=== PATIENT | male | born 1980 | race Hispanic/Latino ===

== ENCOUNTER → 2018-05-05 | Day surgery (SDC) | payer BC ==
[~2018-05-05] MED LIST: CEFTRIAXONE SOD 1 GM VIAL ONE; DESFLURANE 240 ML BTL INH ONE; DEXAMETHASONE SOD PHOS INJ 4 MG/ML VIAL ONE; DIFLUNISAL500 MG PO; FENTANYL CITRATE/PF 100MCG/2 ML INJ ONE; GLYCOPYRROLATE INJ 1MG/ 5 ML SYR ONE; IOPAMIDOL 300MG/ML 50ML INFUS..BTL IV ONE; LIDOCAINE HCL 2% LOCAL INJ 5 ML SDV VIAL INJ ONE; MIDAZOLAM HCL 2 MG/2 ML VIAL ONE; NEOSTIGMINE 5 MG/5ML SYR ONE; OMEPRAZOLE40 MG PO; ONDANSETRON HCL INJ 2 MG/ML VIAL ONE; ORPHENADRINE C100 MG PO; PROPOFOL IV EMULSION 10 MG/ML 20 ML VIAL ONE; ROCURONIUM BROMIDE 10 MG/ML 5ML VIAL ONE; SUCCINYLCHOLINE 200 MG/10 ML SYR ONE; Z.0.PENICILLIN V P50 PO
--- NOTE | 2018-05-05 13:56 | Diagnostic Imaging Report ---
PROCEDURE: X-RAY RETROGRADE PYELOGRAM COMPARISON: None. INDICATIONS: Not provided. FINDINGS: Multiple intraoperative spot images of the abdomen and pelvis were obtained. There is retrograde cannulization of the left ureter with contrast injection. There is mild hydronephrosis with calyceal blunting. Later images depict placement of a left nephroureteral stent with proximal pigtail in the renal pelvis and distal pigtail in the bladder. Cumulative fluoro time: 31 seconds Cumulative area dose product: 542.8 cGycm2 Cumulative air kerma: 15.14 mGy CONCLUSION: Retrograde pyelogram as described above. Dictated by: Som Welsh M.D. on 05/05/2018 at 14:02 Electronically approved by: Som Welsh M.D. on 05/05/2018 at 14:02
--- NOTE | 2018-05-06 09:55 | Operative Report ---
DATE OF PROCEDURE: May 05, 2018 PREOPERATIVE DIAGNOSIS: Left lower pole renal stone. POSTOPERATIVE DIAGNOSIS: Left lower pole renal stone. OPERATIVE PROCEDURES PERFORMED 1. Cystoscopy. 2. Left retrograde pyelogram. 3. Left ureteroscopy with laser lithotripsy and placement of left ureteral stents. ANESTHESIA: General anesthesia. ESTIMATED BLOOD LOSS: Minimal. INDICATIONS: Mr. Jamey Farris is a 37-year-old gentleman who was found to have an 8-mm stone in the left renal pelvis that has since dropped down into the left lower pole. He now presents for definitive surgical management of this problem. PROCEDURE IN DETAIL: The patient was brought into the operating room and placed in the supine position. After administration of general anesthesia, was placed in the dorsal lithotomy position and prepped and draped in the usual sterile fashion. Cystourethroscopy was performed using a 21-Cuban cystoscope. The anterior and posterior urethras were noted to be normal. The prostate revealed mild elevation of the median bar. The bladder was entered without difficulty. Upon entrance into the bladder, the ureteral orifices were in normal anatomical position and produced clear efflux. There were no mucosal lesions identified. Using a 5-Cuban open cone catheter, left retrograde pyelogram was performed. This revealed mild hydronephrosis of the left ureter without any filling defects seen. There was some blunting of the calices noted presumably due to injection artifact. There is a questionable filling defect seen in the lower pole maryann. A 0.035 Amplatz wire was placed up into the left renal pelvis, and a 12/14, 36 cm ureteral access sheath was placed. Flexible ureteroscopy was then performed. The visualized portion of the proximal ureter in the ureteropelvic junction were visually normal. All the calices were visualized. There was a stone approximately 7 mm in diameter noted in the lower pole on the left side. The Holmium laser was used to blast this into multiple fragments. The largest fragment was removed and sent to pathology for identification and analysis. The residual fragments seen were all 1-2 mm or smaller. There were no other stones seen in the collecting system on that side. The flexible ureteroscope and ureteral access sheath was removed. A 6-Cuban, 28-cm stent was placed such that 1 coil was in the renal pelvis and the subsequent coil was in the bladder. The string was allowed to exit the urethral meatus. The patient's bladder was drained in its entirety. The cystoscope and sheath was removed. He was returned to the supine position and anesthesia was reversed. He was transferred to a bed, and taken to the postanesthesia care unit in good condition. Of note, the needle and instrument count were correct at the conclusion of the case. Job#: [id number]
== END | disposition home or self-care (01) ==
LOC: OR 09:47
PROVIDERS: ATTEND Urology
DX: N20.0 Calculus of kidney (principal); G47.33 Obstructive sleep apnea (adult) (pediatric); K29.70 Gastritis, unspecified, without bleeding
CPT/HCPCS: 52356; 74420; 88300; C1766; C2617; J0696; J1100; J2001; J2250; J2405; J3490; Q9967

== ENCOUNTER 2018-05-12 06:46 | Emergency (ER) | payer BC ==
[~2018-05-12] VITALS: Ht 175.3 cm; Wt 137.4 kg
[~2018-05-12 06:46] MED LIST changes: -CEFTRIAXONE SOD 1 GM VIAL ONE; -DESFLURANE 240 ML BTL INH ONE; -DEXAMETHASONE SOD PHOS INJ 4 MG/ML VIAL ONE; -FENTANYL CITRATE/PF 100MCG/2 ML INJ ONE; -GLYCOPYRROLATE INJ 1MG/ 5 ML SYR ONE; -IOPAMIDOL 300MG/ML 50ML INFUS..BTL IV ONE; -LIDOCAINE HCL 2% LOCAL INJ 5 ML SDV VIAL INJ ONE; -MIDAZOLAM HCL 2 MG/2 ML VIAL ONE; -NEOSTIGMINE 5 MG/5ML SYR ONE; -ONDANSETRON HCL INJ 2 MG/ML VIAL ONE; -PROPOFOL IV EMULSION 10 MG/ML 20 ML VIAL ONE; -ROCURONIUM BROMIDE 10 MG/ML 5ML VIAL ONE; -SUCCINYLCHOLINE 200 MG/10 ML SYR ONE
--- NOTE | 2018-05-12 08:04 | Diagnostic Imaging Report ---
History: Vertigo Comparison studies: None Technique: Axial images were obtained from the skull base to the vertex. Coronal and sagittal reconstructions obtained from the axial data. Findings: Scalp/skull: Subcentimeter focal mucosal thickening at the right parietal scalp, most likely related to epidural inclusion cyst. No fractures, blastic or lytic lesions. Extra-axial spaces: No masses. No fluid collections. Brain sulci: Appropriate for age. Ventricles: Normal in size and configuration. No hydrocephalus. Parenchyma: No abnormal densities. No masses, hemorrhage, acute or chronic cortical vascular insults. Sellar/suprasellar region: No abnormalities Craniocervical junction: Patent foramen magnum. No Chiari one malformation. IMPRESSION: No abnormalities . Signed by: DR Jasen Rosas M.D. on 05/12/2018 8:01 AM
[2018-05-12 08:16] LABS: BASOPHILS % 0.3 % (0.0-1.0); EOSINOPHILS # (AUTO) 0.1 (0.0-0.4); EOSINOPHILS % 1.6 % (0.0-6.0); HEMATOCRIT 40.9 % (38.2-49.6); HEMOGLOBIN 13.8 g/dL (14.0-18.0); LYMPHOCYTES # (AUTO) 2.4 (1.0-3.2); LYMPHOCYTES % 27.9 % (18.0-39.1); MEAN CORPUSCULAR HEMOGLOBIN 29.9 pg (28-32); MEAN CORPUSCULAR HGB CONC 33.7 g/dL (31-35); MEAN CORPUSCULAR VOLUME 88.5 fL (81-99); MONOCYTES # (AUTO) 0.4 (0.2-0.8); MONOCYTES % 4.8 % (4.4-11.3); NEUTROPHILS # (AUTO) 5.6 (2.1-6.9); NEUTROPHILS % 64.4 % (38.7-80.0); PLATELET COUNT 243 x10e3/uL (140-360); RED BLOOD COUNT 4.62 x10e6/uL (4.3-5.7); RED CELL DISTRIBUTION WIDTH 13.2 % (11.7-14.4)
[2018-05-12 08:33] LABS: ALANINE AMINOTRANSFERASE 38 IU/L (0-55); ALBUMIN 3.3 g/dL (3.5-5.0); ALBUMIN/GLOBULIN RATIO 0.7 (0.8-2.0); ALKALINE PHOSPHATASE 96 IU/L (40-150); ANION GAP 10.8 mmol/L (8-16); BLOOD UREA NITROGEN 11 mg/dL (7-26); BUN/CREATININE RATIO 15 (6-25); CALCIUM 9.1 mg/dL (8.4-10.2); CARBON DIOXIDE 28 mmol/L (22-29); CHLORIDE 105 mmol/L (98-107); CHOL/HDL RATIO 3.5 (3.9-4.7); CHOLESTEROL 124 MD/DL (0-199); CREATININE, SERUM 0.75 mg/dL (0.72-1.25); EST GLOMERULAR FILTRATION RATE > 60 ML/MIN (60-); GLUCOSE 124 mg/dL (74-118); HDL CHOLESTEROL 35 MG/DL (40-60); LDL CHOLESTEROL 74 MG/DL (60-130); POTASSIUM 3.8 mmol/L (3.5-5.1); SODIUM 140 mmol/L (136-145); TRIGLYCERIDES 74 MG/DL (0-149)
--- NOTE | 2018-05-12 09:10 | Diagnostic Imaging Report ---
PROCEDURE:L-SPINE COMPLETE COMPARISON:Retrograde pyelogram 05/05/2018. INDICATIONS:LUMBAR RADICULOPATHY FINDINGS: There are 5 [id number] lumbar-type vertebral bodies. No acute, displaced fracture or subluxation. No pars interarticularis defects are identified on the oblique radiographs. Mild disc space narrowing and marginal osteophytosis at L3-4, L4-5, and L5-S1. Mild bilateral facet arthropathy at L5-S1. Sacroiliac joints are maintained. Incidental note of 7 and 4 mm round calcifications projecting over the left renal shadow. CONCLUSION: No acute osseous abnormality. Mild degenerative disc changes and facet arthrosis of the lower lumbar spine as above. Incidental left renal calculi. Dictated by: Bernardo Johansen M.D. on 05/12/2018 at 8:14 Electronically approved by: Bernardo Johansen M.D. on 05/12/2018 at 8:14
[2018-05-12] MEDS ORDERED: DEXAMETHASONE SOD PHOS 10 MG/1 ML VIAL INJ ONE (09:30)
[2018-05-12] MEDS ORDERED: MECLIZINE HCL 12.5 MG TAB PO ONE (09:30)
[2018-05-12] MEDS ORDERED: KETOROLAC TROMETHAMINE 60 MG/2 ML VIAL IM ONE (09:30)
[2018-05-12] MEDS ORDERED: KETOROLAC TROMETHAMINE 30 MG/ML VIAL IV STA (10:14)
== END 2018-05-12 10:46 | disposition home or self-care (01) ==
LOC: ER 06:46
DX: R42 Dizziness and giddiness (principal); M51.36 Other intervertebral disc degeneration, lumbar region; E66.9 Obesity, unspecified
CPT/HCPCS: 36415; 70450; 72110; 80053; 80061; 83735; 85025; 93005; 99284; J1100; J1885